=== PATIENT | female | born 1980 | race African-American/Black ===

== ENCOUNTER 2018-07-15 21:19 | Emergency (ER) | payer MEDICAID ==
[~2018-07-15] VITALS: Ht 162.6 cm; Wt 122.0 kg
[2018-07-16] MEDS ORDERED: KETOROLAC 30MG/ML VIAL IM ONE (03:00)
[2018-07-16 05:45] VITALS: BP 136/89
== END 2018-07-16 05:45 | disposition home or self-care (01) ==
LOC: ER 21:19
DX: M25.532 Pain in left wrist (principal); F17.200 Nicotine dependence, unspecified, uncomplicated; W01.0XXA Fall on same level from slipping, tripping and stumbling without subsequent striking against object, initial encounter; Y93.89 Activity, other specified; Y99.8 Other external cause status; Y92.69 Other specified industrial and construction area as the place of occurrence of the external cause
CPT/HCPCS: 29125; 73110; 96372; 99283; J1885